=== PATIENT | female | born 1955 | race Caucasian/White ===

== ENCOUNTER 2016-07-21 15:18 | Inpatient (IN) | payer OTHER ==
[~2016-07-21] VITALS: Ht 172.7 cm; Wt 90.1 kg
[~2016-07-21 15:18] MED LIST: BUPIVACAINE 0.25% PF 10ML EPIDURAL ONE
[2016-07-21] MEDS ORDERED: OPTIRAY 350 100 ML VIAL HMH IV ONE (15:19)
[2016-07-21] MEDS ORDERED: SODIUM CHLORIDE 0.9% 1,000 ML ONE (16:55)
[2016-07-21] MEDS ORDERED: ONDANSETRON 4 MG VIAL ONE (17:46)
[2016-07-21] MEDS ORDERED: DILAUDID 1 MG/ML AMP ONE (17:47)
[2016-07-21] MEDS ORDERED: NEB-ALBUTEROL 2.5 MG/3 ML INH PRN (19:50)
[2016-07-21] MEDS ORDERED: ONDANSETRON 4 MG VIAL IV PRN (19:50)
[2016-07-21 21:42] VITALS: BP_SYST 128; RESP 18; TEMP 97.2; Ht 172.7 cm; Wt 90.1 kg
[2016-07-21 22:47] VITALS: BP_SYST 119
[2016-07-21 22:48] VITALS: RESP 16; TEMP 97.2
[2016-07-21] MEDS ORDERED: MISSING DOSE XX ONE ×2 (22:50→23:50)
[2016-07-21] MEDS: PIPERACIL/TAZO 3.375GM/50ML 50 ML IV SCH (23:51)
[2016-07-21] MEDS: TEMAZEPAM 15 MG CAP PO PRN (23:52)
[2016-07-21] MEDS: DILAUDID 1 MG/ML AMP IV PRN (23:52)
[2016-07-22] VITALS (7 sets, daily range): BP systolic 87–111; RESP 12–16; TEMP 97.4–97.9
[2016-07-22] MEDS: PIPERACIL/TAZO 3.375GM/50ML 50 ML IV SCH ×3 (06:34→17:29)
[2016-07-22] MEDS: LEVOTHYROXINE 0.137 MG TAB PO SCH (06:34)
[2016-07-22] MEDS: DILAUDID 1 MG/ML AMP IV PRN ×5 (08:27→22:19)
[2016-07-22] MEDS: VENLAFAXINE XR 75 MG CAP PO SCH (09:46)
[2016-07-22] MEDS: FAMOTIDINE 20 MG TAB PO SCH ×2 (12:51→19:50)
[2016-07-22] MEDS: DIPHENHYDRAMINE 50 MG CAP PO PRN ×2 (12:54)
[2016-07-22] MEDS: D5-1/2-NS W/KCL 20MEQ/L 1,000 ML IV SCH (17:29)
[2016-07-22] MEDS: OXYCODONE 5 MG TAB PO PRN ×2 (17:43→22:19)
[2016-07-22] MEDS: TEMAZEPAM 15 MG CAP PO PRN (21:26)
[2016-07-23] MEDS: PIPERACIL/TAZO 3.375GM/50ML 50 ML IV SCH ×5 (00:06→23:42)
[2016-07-23 00:07] VITALS: BP_SYST 107
[2016-07-23] MEDS: DILAUDID 1 MG/ML AMP IV PRN ×6 (01:59→20:13)
[2016-07-23 03:48] VITALS: BP_SYST 90; RESP 16; TEMP 97.8
[2016-07-23] MEDS: OXYCODONE 5 MG TAB PO PRN ×5 (03:50→21:38)
[2016-07-23] MEDS: LEVOTHYROXINE 0.137 MG TAB PO SCH (05:43)
[2016-07-23 07:49] VITALS: BP_SYST 114; RESP 16; TEMP 98.3
[2016-07-23] MEDS: VENLAFAXINE XR 75 MG CAP PO SCH (08:14)
[2016-07-23] MEDS: FAMOTIDINE 20 MG TAB PO SCH ×2 (08:14→20:12)
[2016-07-23 11:46] VITALS: BP_SYST 111; RESP 16; TEMP 98.5
[2016-07-23] MEDS: DIPHENHYDRAMINE 50 MG CAP PO PRN (12:09)
[2016-07-23 15:19] VITALS: BP_SYST 109; RESP 16; TEMP 98.2
[2016-07-23] MEDS: D5-1/2-NS W/KCL 20MEQ/L 1,000 ML IV SCH (16:24)
[2016-07-23 19:34] VITALS: BP_SYST 100; RESP 16; TEMP 98.2
[2016-07-23] MEDS ORDERED: MISSING DOSE XX ONE (19:35)
[2016-07-23] MEDS: TEMAZEPAM 15 MG CAP PO PRN (21:32)
[2016-07-24] VITALS (7 sets, daily range): BP systolic 99–122; RESP 16; TEMP 97.7–98.1
[2016-07-24] MEDS ORDERED: MISSING DOSE XX ONE ×2 (04:25→05:15)
[2016-07-24] MEDS: OXYCODONE 5 MG TAB PO PRN ×5 (04:29→21:32)
[2016-07-24] MEDS: DIPHENHYDRAMINE 50 MG CAP PO PRN (04:29)
[2016-07-24] MEDS: LEVOTHYROXINE 0.137 MG TAB PO SCH (05:47)
[2016-07-24] MEDS: DILAUDID 1 MG/ML AMP IV PRN ×6 (05:48→22:59)
[2016-07-24] MEDS: PIPERACIL/TAZO 3.375GM/50ML 50 ML IV SCH ×3 (05:52→19:24)
[2016-07-24] MEDS: FAMOTIDINE 20 MG TAB PO SCH ×2 (07:05→19:57)
[2016-07-24] MEDS: VENLAFAXINE XR 75 MG CAP PO SCH (07:05)
[2016-07-24] MEDS: D5-1/2-NS W/KCL 20MEQ/L 1,000 ML IV SCH (12:13)
[2016-07-24] MEDS ORDERED: ONDANSETRON 4 MG VIAL IV ONE (13:45)
[2016-07-24] MEDS: GLYCOPYRROLATE 0.2 MG/ML VIAL IV ONE (13:45)
[2016-07-24] MEDS: MIDAZOLAM 2 MG/2 ML INJ IV ONE (13:45)
[2016-07-24] MEDS ORDERED: LACT RINGERS 1,000 ML IV SCH (13:45)
[2016-07-24] MEDS ORDERED: LIDOCAINE 1% BUFFERED 1 ML SYR INTRADERM PRN (13:45)
[2016-07-24] MEDS ORDERED: MAG CIT SOLN 300 ML PO ONE ×2 (15:00→19:00)
[2016-07-24] MEDS: PANTOPRAZOLE 40 MG VIAL IV SCH (19:57)
[2016-07-24] MEDS: ALU/MAG/SIM 30 ML UDC PO PRN (19:57)
[2016-07-24] MEDS: TEMAZEPAM 15 MG CAP PO PRN (21:31)
[2016-07-25] VITALS (29 sets, daily range): BP systolic 90–128; RESP 13–19; TEMP 97.2–99.3
[2016-07-25] MEDS: PIPERACIL/TAZO 3.375GM/50ML 50 ML IV SCH ×5 (00:10→23:48)
[2016-07-25] MEDS: DILAUDID 1 MG/ML AMP IV PRN ×3 (02:13→08:49)
[2016-07-25] MEDS: LEVOTHYROXINE 0.137 MG TAB PO SCH (05:36)
[2016-07-25] MEDS ORDERED: PROPOFOL 20 ML PER ML IV ONE (07:49)
[2016-07-25] MEDS ORDERED: GLYCOPYRROLATE 0.2 MG/ML VIAL IV ONE ×2 (07:49→10:45)
[2016-07-25] MEDS ORDERED: NEOSTIGMINE 10 MG/10 ML VIAL IV ONE (07:49)
[2016-07-25] MEDS ORDERED: LIDOCAINE 2% SYR 5 ML IV ONE (07:49)
[2016-07-25] MEDS ORDERED: ROCURONIUM 50 MG VIAL IV ONE (07:49)
[2016-07-25] MEDS ORDERED: FENTANYL 100 MCG/2 ML AMP IV ONE (07:49)
[2016-07-25] MEDS: VENLAFAXINE XR 75 MG CAP PO SCH (09:00)
[2016-07-25] MEDS: FAMOTIDINE 20 MG TAB PO SCH ×2 (09:00→20:29)
[2016-07-25] MEDS ORDERED: MIDAZOLAM 2 MG/2 ML INJ ONE ×2 (10:11→10:46)
[2016-07-25] MEDS ORDERED: GLYCOPYRROLATE 0.2 MG/ML VIAL ONE ×2 (10:11→10:46)
[2016-07-25] MEDS: MIDAZOLAM 2 MG/2 ML INJ IV ONE (10:13)
[2016-07-25] MEDS: GLYCOPYRROLATE 0.2 MG/ML VIAL IV ONE (10:13)
[2016-07-25] MEDS ORDERED: MIDAZOLAM 2 MG/2 ML INJ IV ONE (10:45)
[2016-07-25] MEDS ORDERED: ONDANSETRON 4 MG VIAL IV PRN ×2 (11:10)
[2016-07-25] MEDS ORDERED: MORPHINE 2 MG/ML SYR IV PRN (11:10)
[2016-07-25] MEDS ORDERED: OXYCODONE 5 MG TAB PO PRN (11:10)
[2016-07-25] MEDS ORDERED: MEPERIDINE 25 MG/ML IV PRN (11:10)
[2016-07-25] MEDS ORDERED: NALOXONE 0.4 MG/ML AMP IV PRN (11:10)
[2016-07-25] MEDS ORDERED: DILAUDID 1 MG/ML AMP IV PRN (11:10)
[2016-07-25] MEDS ORDERED: MORPHINE 4 MG/ML SYR IV PRN (11:10)
[2016-07-25] MEDS ORDERED: SALINE FLUSH 10 ML FLUSH PRN (13:45)
[2016-07-25] MEDS: BUPIV/FENT 0.125%-2MCG/ML 100 ML EPIDURAL SCH ×2 (14:14→23:48)
[2016-07-25] MEDS: **ONLY ANESTEHSIA MAY ORDER OPIATES WHILE ON EPIDURAL XX SCH (20:00)
[2016-07-25] MEDS: SALINE FLUSH 10 ML FLUSH SCH (20:26)
[2016-07-25] MEDS: FAMOTIDINE 20 MG INJ IV SCH (20:27)
[2016-07-25] MEDS: PANTOPRAZOLE 40 MG VIAL IV SCH (20:27)
[2016-07-25] MEDS: SODIUM CHLORIDE 0.9% 1,000 ML IV SCH (20:27)
[2016-07-25] MEDS: TEMAZEPAM 15 MG CAP PO PRN (20:42)
[2016-07-26] MEDS: SODIUM CHLORIDE 0.9% FLUSH BAG 500 ML IV SCH ×2 (00:26→22:39)
[2016-07-26 03:38] VITALS: BP_SYST 92; RESP 16; TEMP 98.7
[2016-07-26] MEDS: SODIUM CHLORIDE 0.9% 1,000 ML IV SCH ×3 (05:54→15:35)
[2016-07-26] MEDS: LEVOTHYROXINE 0.137 MG TAB PO SCH (05:59)
[2016-07-26] MEDS: PIPERACIL/TAZO 3.375GM/50ML 50 ML IV SCH ×3 (05:59→17:33)
[2016-07-26 07:39] VITALS: BP_SYST 104; RESP 16; TEMP 99.2
[2016-07-26] MEDS: FAMOTIDINE 20 MG INJ IV SCH ×2 (07:50→19:47)
[2016-07-26] MEDS: FAMOTIDINE 20 MG TAB PO SCH ×2 (07:51→19:49)
[2016-07-26] MEDS: SALINE FLUSH 10 ML FLUSH SCH ×2 (07:51→19:48)
[2016-07-26] MEDS: **ONLY ANESTEHSIA MAY ORDER OPIATES WHILE ON EPIDURAL XX SCH ×2 (08:00→19:48)
[2016-07-26] MEDS: VENLAFAXINE XR 75 MG CAP PO SCH (09:00)
[2016-07-26] MEDS: BUPIV/FENT 0.125%-2MCG/ML 100 ML EPIDURAL SCH ×2 (10:45→19:45)
[2016-07-26 11:01] VITALS: BP_SYST 105; RESP 16; TEMP 99.1
[2016-07-26] MEDS: ACETAMINOPHEN 650 MG/20.3 ML UDC PO PRN ×2 (12:23→20:08)
[2016-07-26 15:12] VITALS: BP_SYST 98; RESP 16; TEMP 98.3
[2016-07-26] MEDS: PANTOPRAZOLE 40 MG VIAL IV SCH (19:47)
[2016-07-26 19:57] VITALS: BP_SYST 107; RESP 16; TEMP 99.1
[2016-07-26] MEDS: TEMAZEPAM 15 MG CAP PO PRN (21:25)
[2016-07-26 23:43] VITALS: BP_SYST 91; RESP 16; TEMP 98.2
[2016-07-27] VITALS (7 sets, daily range): BP systolic 109–121; RESP 16–18; TEMP 97.5–98.5
[2016-07-27] MEDS: SODIUM CHLORIDE 0.9% 1,000 ML IV SCH ×4 (00:05→18:10)
[2016-07-27] MEDS: PIPERACIL/TAZO 3.375GM/50ML 50 ML IV SCH ×5 (00:05→23:32)
[2016-07-27] MEDS: LEVOTHYROXINE 0.137 MG TAB PO SCH (05:25)
[2016-07-27] MEDS: BUPIV/FENT 0.125%-2MCG/ML 100 ML EPIDURAL SCH ×2 (05:35→16:15)
[2016-07-27] MEDS: **ONLY ANESTEHSIA MAY ORDER OPIATES WHILE ON EPIDURAL XX SCH ×2 (08:00→20:00)
[2016-07-27] MEDS: SALINE FLUSH 10 ML FLUSH SCH ×2 (08:14→20:42)
[2016-07-27] MEDS: FAMOTIDINE 20 MG INJ IV SCH ×2 (08:14→20:42)
[2016-07-27] MEDS: ACETAMINOPHEN 650 MG/20.3 ML UDC PO PRN (08:18)
[2016-07-27] MEDS: FAMOTIDINE 20 MG TAB PO SCH ×2 (09:00→20:42)
[2016-07-27] MEDS: VENLAFAXINE XR 75 MG CAP PO SCH (09:00)
[2016-07-27] MEDS: ALU/MAG/SIM 30 ML UDC PO PRN (16:25)
[2016-07-27] MEDS ORDERED: DILAUDID 1 MG/ML AMP ONE (17:31)
[2016-07-27] MEDS: DILAUDID 1 MG/ML AMP IV PRN ×3 (17:36→23:46)
[2016-07-27] MEDS: TEMAZEPAM 15 MG CAP PO PRN (21:20)
[2016-07-27] MEDS: ONDANSETRON 4 MG VIAL IV PRN (21:23)
[2016-07-28] VITALS (7 sets, daily range): BP systolic 93–116; RESP 16–20; TEMP 97.6–98.2
[2016-07-28] MEDS: BUPIV/FENT 0.125%-2MCG/ML 100 ML EPIDURAL SCH ×2 (01:18→08:04)
[2016-07-28] MEDS: DILAUDID 1 MG/ML AMP IV PRN ×6 (03:10→18:31)
[2016-07-28] MEDS: SODIUM CHLORIDE 0.9% 1,000 ML IV SCH ×2 (03:23→14:18)
[2016-07-28] MEDS: SODIUM CHLORIDE 0.9% FLUSH BAG 500 ML IV SCH ×2 (05:01→19:01)
[2016-07-28] MEDS: PIPERACIL/TAZO 3.375GM/50ML 50 ML IV SCH ×3 (05:02→17:47)
[2016-07-28] MEDS: LEVOTHYROXINE 0.137 MG TAB PO SCH (06:10)
[2016-07-28] MEDS: ONDANSETRON 4 MG VIAL IV PRN ×2 (07:35→14:24)
[2016-07-28] MEDS: FAMOTIDINE 20 MG TAB PO SCH ×2 (09:00→20:05)
[2016-07-28] MEDS: FAMOTIDINE 20 MG INJ IV SCH ×2 (09:04→20:16)
[2016-07-28] MEDS: SALINE FLUSH 10 ML FLUSH SCH ×2 (09:04→20:16)
[2016-07-28] MEDS: VENLAFAXINE XR 75 MG CAP PO SCH (09:04)
[2016-07-28] MEDS: **ONLY ANESTEHSIA MAY ORDER OPIATES WHILE ON EPIDURAL XX SCH ×2 (09:05→19:00)
[2016-07-28] MEDS ORDERED: KCL 20 MEQ/15 ML UDC PO ONE (11:10)
[2016-07-28] MEDS ORDERED: MISSING DOSE XX ONE (11:55)
[2016-07-28] MEDS: TEMAZEPAM 15 MG CAP PO PRN (20:17)
[2016-07-28] MEDS: ACETAMINOPHEN 650 MG/20.3 ML UDC PO PRN (20:18)
[2016-07-29] MEDS: PIPERACIL/TAZO 3.375GM/50ML 50 ML IV SCH ×4 (01:21→17:36)
[2016-07-29] MEDS: ACETAMINOPHEN 650 MG/20.3 ML UDC PO PRN (03:31)
[2016-07-29] MEDS: DILAUDID 1 MG/ML AMP IV PRN ×5 (03:32→22:19)
[2016-07-29 03:44] VITALS: BP_SYST 121; RESP 16; TEMP 98
[2016-07-29] MEDS: LEVOTHYROXINE 0.137 MG TAB PO SCH (06:01)
[2016-07-29 07:25] VITALS: BP_SYST 120; RESP 16; TEMP 97.8
[2016-07-29] MEDS: **ONLY ANESTEHSIA MAY ORDER OPIATES WHILE ON EPIDURAL XX SCH ×2 (08:00→19:48)
[2016-07-29] MEDS: VENLAFAXINE XR 75 MG CAP PO SCH (08:54)
[2016-07-29] MEDS: ONDANSETRON 4 MG VIAL IV PRN ×2 (08:55→16:30)
[2016-07-29] MEDS: FAMOTIDINE 20 MG INJ IV SCH ×2 (08:55→20:16)
[2016-07-29] MEDS: SALINE FLUSH 10 ML FLUSH SCH ×2 (09:03→19:49)
[2016-07-29 11:14] VITALS: BP_SYST 146; RESP 16; TEMP 97.7
[2016-07-29] MEDS: SODIUM CHLORIDE 0.9% 1,000 ML IV SCH (12:44)
[2016-07-29 15:37] VITALS: BP_SYST 123; RESP 16; TEMP 98.3
[2016-07-29 19:29] VITALS: BP_SYST 132; RESP 16; TEMP 98
[2016-07-29] MEDS: ALU/MAG/SIM 30 ML UDC PO PRN (20:00)
[2016-07-29] MEDS: TEMAZEPAM 15 MG CAP PO PRN (20:46)
[2016-07-29 22:55] VITALS: BP_SYST 120; RESP 16; TEMP 98.1
[2016-07-30] MEDS: PIPERACIL/TAZO 3.375GM/50ML 50 ML IV SCH ×5 (00:23→23:53)
[2016-07-30 03:14] VITALS: BP_SYST 120; RESP 16; TEMP 98.1
[2016-07-30] MEDS: SODIUM CHLORIDE 0.9% FLUSH BAG 500 ML IV SCH (06:00)
[2016-07-30] MEDS: SODIUM CHLORIDE 0.9% 1,000 ML IV SCH (06:18)
[2016-07-30] MEDS ORDERED: MISSING DOSE XX ONE ×3 (06:30→18:00)
[2016-07-30] MEDS: LEVOTHYROXINE 0.137 MG TAB PO SCH (06:47)
[2016-07-30 08:00] VITALS: BP_SYST 114; RESP 16; TEMP 98.3
[2016-07-30] MEDS: **ONLY ANESTEHSIA MAY ORDER OPIATES WHILE ON EPIDURAL XX SCH ×2 (08:00→20:00)
[2016-07-30] MEDS: SALINE FLUSH 10 ML FLUSH SCH ×3 (08:00→21:13)
[2016-07-30] MEDS ORDERED: SODIUM CHLORIDE 0.9% FLUSH BAG 500 ML IV PRN (09:50)
[2016-07-30] MEDS ORDERED: SALINE FLUSH 10 ML FLUSH PRN (09:50)
[2016-07-30] MEDS: VENLAFAXINE XR 75 MG CAP PO SCH (10:40)
[2016-07-30] MEDS: FAMOTIDINE 20 MG INJ IV SCH ×2 (10:40→21:13)
[2016-07-30] MEDS: ACETAMINOPHEN 650 MG/20.3 ML UDC PO PRN ×2 (10:51→18:32)
[2016-07-30 11:03] VITALS: BP_SYST 139; RESP 16; TEMP 98
[2016-07-30 15:13] VITALS: BP_SYST 131; RESP 16; TEMP 98.8
[2016-07-30] MEDS: OXYCODONE 5 MG TAB PO PRN ×2 (15:34→23:58)
[2016-07-30] MEDS: ALU/MAG/SIM 30 ML UDC PO PRN (16:01)
[2016-07-30 19:27] VITALS: BP_SYST 128; RESP 16; TEMP 97.6
[2016-07-30] MEDS: ONDANSETRON 4 MG VIAL IV PRN (20:03)
[2016-07-30] MEDS: TEMAZEPAM 15 MG CAP PO PRN (21:13)
[2016-07-30 22:46] VITALS: BP_SYST 138; RESP 16; TEMP 98
[2016-07-31 03:34] VITALS: BP_SYST 115; RESP 16; TEMP 97.7
[2016-07-31] MEDS: LEVOTHYROXINE 0.137 MG TAB PO SCH (06:21)
[2016-07-31] MEDS: PIPERACIL/TAZO 3.375GM/50ML 50 ML IV SCH ×4 (06:23→23:42)
[2016-07-31] MEDS: **ONLY ANESTEHSIA MAY ORDER OPIATES WHILE ON EPIDURAL XX SCH ×2 (07:25→19:39)
[2016-07-31 07:44] VITALS: BP_SYST 121; RESP 16; TEMP 97.9
[2016-07-31] MEDS: SALINE FLUSH 10 ML FLUSH SCH ×2 (08:21→19:37)
[2016-07-31] MEDS: OXYCODONE 5 MG TAB PO PRN (08:21)
[2016-07-31] MEDS: VENLAFAXINE XR 75 MG CAP PO SCH (08:52)
[2016-07-31] MEDS: FAMOTIDINE 20 MG INJ IV SCH ×2 (08:53→19:38)
[2016-07-31] MEDS: LEVOFLOXACIN 500 MG TAB PO SCH (08:53)
[2016-07-31 11:06] VITALS: BP_SYST 122; RESP 16; TEMP 98
[2016-07-31] MEDS: ONDANSETRON 4 MG VIAL IV PRN ×2 (12:20→19:38)
[2016-07-31] MEDS: DILAUDID 1 MG/ML AMP IV PRN ×4 (13:23→23:42)
[2016-07-31] MEDS: ALU/MAG/SIM 30 ML UDC PO PRN (13:51)
[2016-07-31] MEDS: ACETAMINOPHEN 650 MG/20.3 ML UDC PO PRN (15:56)
[2016-07-31 16:20] VITALS: BP_SYST 138; RESP 16; TEMP 98
[2016-07-31 19:52] VITALS: BP_SYST 138; RESP 16; TEMP 97.6
[2016-07-31] MEDS: SODIUM CHLORIDE 0.9% 1,000 ML IV SCH (19:55)
[2016-07-31] MEDS: TEMAZEPAM 15 MG CAP PO PRN (20:44)
[2016-07-31 23:09] VITALS: BP_SYST 133; RESP 16; TEMP 97.9
[2016-08-01] MEDS: ONDANSETRON 4 MG VIAL IV PRN (01:35)
[2016-08-01 03:37] VITALS: BP_SYST 121; RESP 16; TEMP 97.9
[2016-08-01] MEDS: LEVOTHYROXINE 0.137 MG TAB PO SCH (06:49)
[2016-08-01] MEDS: PIPERACIL/TAZO 3.375GM/50ML 50 ML IV SCH ×2 (06:49→12:34)
[2016-08-01 07:31] VITALS: BP_SYST 135; RESP 16; TEMP 98.2
[2016-08-01] MEDS: **ONLY ANESTEHSIA MAY ORDER OPIATES WHILE ON EPIDURAL XX SCH (08:00)
[2016-08-01] MEDS: LEVOFLOXACIN 500 MG TAB PO SCH (08:12)
[2016-08-01] MEDS: VENLAFAXINE XR 75 MG CAP PO SCH (08:12)
[2016-08-01] MEDS: SALINE FLUSH 10 ML FLUSH SCH (08:12)
[2016-08-01] MEDS: FAMOTIDINE 20 MG INJ IV SCH (08:13)
[2016-08-01 10:30] VITALS: BP_SYST 126; RESP 16; TEMP 98.5
[2016-08-01] MEDS ORDERED: ACETAMINOPHEN 325 MG TAB ONE (11:24)
[2016-08-01] MEDS ORDERED: ACETAMINOPHEN 325 MG TAB PO PRN (11:25)
[2016-08-01 13:12] VITALS: BP_SYST 126; RESP 16; TEMP 98.5
== END 2016-08-01 15:13 | disposition home or self-care (01) | DRG 330 ==
LOC: ENRESERVDT → ENRESERVTM → ER 15:18 → EMR 19:50 → 5THW 21:42
PROVIDERS: ADMIT Surgery; ATTEND Surgery
PROC: 0D1M0Z4 Bypass Descending Colon to Cutaneous, Open Approach (ICD-10-PCS; principal; 2016-07-25 10:40)
PROC: 3E0T3BZ Introduction of Anesthetic Agent into Peripheral Nerves and Plexi, Percutaneous Approach (ICD-10-PCS; 2016-07-25 11:17)
DX: K63.2 Fistula of intestine (principal); K57.92 Diverticulitis of intestine, part unspecified, without perforation or abscess without bleeding; N82.3 Fistula of vagina to large intestine; N39.0 Urinary tract infection, site not specified; E03.9 Hypothyroidism, unspecified; J44.9 Chronic obstructive pulmonary disease, unspecified; F32.9 Major depressive disorder, single episode, unspecified; I10 Essential (primary) hypertension; Z72.0 Tobacco use; K21.9 Gastro-esophageal reflux disease without esophagitis; F41.9 Anxiety disorder, unspecified
CPT/HCPCS: 36415; 74177; 80048; 80053; 81001; 83690; 85025; 87077; 87088; 87186; 87491; 87591; 87800; 93005; 94762; 94799; 96361; 96374; 96375; 96376

== ENCOUNTER 2016-08-17 09:53 | Inpatient (IN) | payer OTHER ==
[~2016-08-17] VITALS: Ht 172.7 cm; Wt 90.3 kg
[2016-08-17] MEDS ORDERED: OPTIRAY 350 100 ML VIAL HMH IV ONE (09:54)
[2016-08-17] MEDS ORDERED: DILAUDID 1 MG/ML AMP ONE ×2 (11:28→16:22)
[2016-08-17] MEDS ORDERED: ONDANSETRON 4 MG VIAL ONE ×2 (11:28→16:29)
[2016-08-17] MEDS ORDERED: SODIUM CHLORIDE 0.9% 500 ML IV ONE (11:29)
[2016-08-17] MEDS ORDERED: ED METRONIDAZOLE IV 100 ML IV ONE (16:03)
[2016-08-17] MEDS ORDERED: SODIUM CHLORIDE 0.9% 1,000 ML ONE ×2 (16:03→19:07)
[2016-08-17] MEDS ORDERED: MORPHINE 2 MG/ML SYR IV PRN (17:40)
[2016-08-17] MEDS ORDERED: SALINE FLUSH 10 ML FLUSH PRN (17:40)
[2016-08-17] MEDS ORDERED: ALU/MAG/SIM 30 ML UDC PO PRN (17:40)
[2016-08-17] MEDS: LEVOFLOXACIN 750 MG/150 ML 150 ML IV SCH (17:40)
[2016-08-17] MEDS ORDERED: LACT RINGERS 1,000 ML IV ONE ×2 (17:45)
[2016-08-17] MEDS: METRONIDAZOLE 500MG/100ML 100 ML IV SCH ×2 (18:00→23:43)
[2016-08-17 19:26] VITALS: BP_SYST 95; RESP 18; TEMP 98.1; Ht 172.7 cm; Wt 90.3 kg
[2016-08-17] MEDS ORDERED: VENLAFAXINE XR 75 MG CAP PO ONE (19:49)
[2016-08-17] MEDS ORDERED: TEMAZEPAM 7.5 MG CAP PO ONE (21:00)
[2016-08-17] MEDS: ACETAMINOPHEN 325 MG TAB PO PRN (21:30)
[2016-08-17] MEDS: DILAUDID 1 MG/ML AMP IV PRN (21:30)
[2016-08-17] MEDS: SUCRALFATE 1 GM TAB PO SCH (21:31)
[2016-08-17] MEDS: SALINE FLUSH 10 ML FLUSH SCH (21:31)
[2016-08-17] MEDS: FAMOTIDINE 20 MG TAB PO SCH (21:31)
[2016-08-17] MEDS: ONDANSETRON 4 MG VIAL IV PRN (21:39)
[2016-08-17] MEDS ORDERED: MISSING DOSE XX ONE (21:55)
[2016-08-17 23:25] VITALS: BP_SYST 96; TEMP 98.1
[2016-08-17 23:26] VITALS: RESP 16
[2016-08-18] VITALS (7 sets, daily range): BP systolic 90–134; RESP 16–18; TEMP 97.5–98.2
[2016-08-18] MEDS: DILAUDID 1 MG/ML AMP IV PRN ×3 (04:50→13:48)
[2016-08-18] MEDS: METRONIDAZOLE 500MG/100ML 100 ML IV SCH ×4 (05:22→23:04)
[2016-08-18] MEDS: LACT RINGERS 1,000 ML IV SCH ×3 (05:23→23:11)
[2016-08-18] MEDS: SODIUM CHLORIDE 0.9% FLUSH BAG 500 ML IV SCH (06:00)
[2016-08-18] MEDS: LEVOTHYROXINE 0.137 MG TAB PO SCH (06:40)
[2016-08-18] MEDS: PANTOPRAZOLE 40 MG TAB PO SCH (06:41)
[2016-08-18] MEDS: ENOXAPARIN 40 MG/0.4 ML SYR SUBQ SCH (07:59)
[2016-08-18] MEDS: LEVOFLOXACIN 750 MG/150 ML 150 ML IV SCH (07:59)
[2016-08-18] MEDS: SUCRALFATE 1 GM TAB PO SCH ×3 (08:00→19:46)
[2016-08-18] MEDS: SALINE FLUSH 10 ML FLUSH SCH ×2 (08:00→19:45)
[2016-08-18] MEDS: VENLAFAXINE XR 75 MG CAP PO SCH (08:00)
[2016-08-18] MEDS: FAMOTIDINE 20 MG TAB PO SCH ×2 (08:00→19:46)
[2016-08-18] MEDS ORDERED: VENLAFAXINE XR 75 MG CAP PO SCH (09:00)
[2016-08-18] MEDS: ACETAMINOPHEN 325 MG TAB PO PRN ×3 (10:42→19:46)
[2016-08-18] MEDS: ONDANSETRON 4 MG VIAL IV PRN ×2 (13:47→19:47)
[2016-08-18] MEDS ORDERED: TEMAZEPAM 7.5 MG CAP PO ONE (21:00)
[2016-08-18] MEDS: PROMETHAZINE 25 MG/ML VIAL IV PRN (22:51)
[2016-08-19 03:51] VITALS: BP_SYST 118; RESP 18; TEMP 98.1
[2016-08-19] MEDS: SODIUM CHLORIDE 0.9% FLUSH BAG 500 ML IV SCH (06:00)
[2016-08-19] MEDS: LACT RINGERS 1,000 ML IV SCH (07:04)
[2016-08-19] MEDS: PANTOPRAZOLE 40 MG TAB PO SCH (07:06)
[2016-08-19] MEDS: LEVOTHYROXINE 0.137 MG TAB PO SCH (07:06)
[2016-08-19] MEDS: METRONIDAZOLE 500MG/100ML 100 ML IV SCH ×2 (07:06→12:22)
[2016-08-19 07:38] VITALS: BP_SYST 130; RESP 16; TEMP 98
[2016-08-19] MEDS: PROMETHAZINE 25 MG/ML VIAL IV PRN (08:00)
[2016-08-19] MEDS: SUCRALFATE 1 GM TAB PO SCH (09:00)
[2016-08-19] MEDS: FAMOTIDINE 20 MG TAB PO SCH (09:00)
[2016-08-19] MEDS: VENLAFAXINE XR 75 MG CAP PO SCH (09:15)
[2016-08-19] MEDS: ENOXAPARIN 40 MG/0.4 ML SYR SUBQ SCH (09:16)
[2016-08-19] MEDS: LEVOFLOXACIN 750 MG/150 ML 150 ML IV SCH (09:17)
[2016-08-19] MEDS: SALINE FLUSH 10 ML FLUSH SCH (09:44)
[2016-08-19 11:21] VITALS: BP_SYST 126; RESP 18; TEMP 98.2
[2016-08-19 14:39] VITALS: BP_SYST 126; RESP 18; TEMP 98.2
== END 2016-08-19 15:00 | disposition home or self-care (01) | DRG 392 ==
LOC: CANRESERV → ENRESERVDT → ENRESERVTM → ER 09:53 → ENPENDDIS 18:09 → EMR 18:09 → 5THE 19:22
PROVIDERS: ADMIT Internal Medicine; ATTEND Internal Medicine
DX: K57.92 Diverticulitis of intestine, part unspecified, without perforation or abscess without bleeding (principal); E87.2 Acidosis; M32.9 Systemic lupus erythematosus, unspecified; E83.52 Hypercalcemia; K31.84 Gastroparesis; A08.4 Viral intestinal infection, unspecified; J45.909 Unspecified asthma, uncomplicated; I10 Essential (primary) hypertension; E03.9 Hypothyroidism, unspecified; F32.9 Major depressive disorder, single episode, unspecified; E86.0 Dehydration; Z87.891 Personal history of nicotine dependence
CPT/HCPCS: 36415; 74177; 80053; 81003; 83605; 83690; 85025; 87493; 87804; 96361; 96365; 96367; 96375; 96376; 99223; 99232; 99239